=== PATIENT | female | born 1955 ===

== ENCOUNTER 2023-03-26 05:45 | Day surgery (SDC) | payer OTHER ==
[~2023-03-26] VITALS: Ht 165.1 cm; Wt 79.4 kg
[~2023-03-26 05:45] MED LIST: AMLODI PO; COZAAR100 MG PO; HYDRODIURIL12.5 MG PO; SIMVASTATIN20 MG PO
[2023-03-26] MEDS ORDERED: MORGIDOX100 MG PO (17:30)
[2023-03-26] MEDS ORDERED: NAPR500T14 PO (17:30)
== END 2023-03-26 21:30 | disposition home or self-care (01) ==
LOC: CIR.AMB 05:45
PROVIDERS: ATTEND Obstetrics & Gynecology
DX: N95.0 Postmenopausal bleeding (principal); N88.2 Stricture and stenosis of cervix uteri; N84.0 Polyp of corpus uteri; D25.0 Submucous leiomyoma of uterus; Z20.822 Contact with and (suspected) exposure to COVID-19; I10 Essential (primary) hypertension; F17.210 Nicotine dependence, cigarettes, uncomplicated